=== PATIENT | male | born 1970 | race Caucasian/White ===

== ENCOUNTER 2023-12-27 10:18 | Day surgery (SDC) | payer OTHER ==
[~2023-12-27] VITALS: Ht 165.1 cm; Wt 88.5 kg
[2023-12-27] MEDS ORDERED: LIDOCAINE 2% 100 MG/5 ML UJET TP ONE (13:57)
[2023-12-27] MEDS ORDERED: fentaNYL citrate 0.05 MG/ML VIAL ONE (13:57)
[2023-12-27] MEDS: fentaNYL citrate 0.05 MG/ML VIAL IVP ONE (14:02)
== END 2023-12-27 15:15 | disposition home or self-care (01) ==
LOC: MDS 10:18 → MMU 13:21 → MDS 15:15
PROVIDERS: ATTEND Internal Medicine Gastroenterology
DX: Z12.11 Encounter for screening for malignant neoplasm of colon (principal); K63.5 Polyp of colon; K57.30 Diverticulosis of large intestine without perforation or abscess without bleeding; Z79.899 Other long term (current) drug therapy
CPT/HCPCS: 45385; J3010